=== PATIENT | female | born 2000 | race Caucasian/White ===

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

== ENCOUNTER 2023-11-18 04:07 | Emergency (ER) | payer BC, SELFPAY ==
--- NOTE | ~2023-11-18 | CT_ITS ---
CT of the Abdomen and Pelvis: Indication: Abdominal pain Technique: 2.5 mm axial scans were obtained through the abdomen and pelvis following intravenous adm inistration of 100 cc of Omnipaque 350. Dose reduction technique was used on this scan by utilizing a utomated exposure control and iterative reconstruction technique. The dose-length product (DLP) was 3 68.71 mGy-cm. Findings: Scans through the lung bases are unremarkable. The liver, spleen, pancreas, gallbladder, adrenals and kidneys are within normal limits. No evidence of aortic aneurysm. No lymphadenopathy. No bowel obstruction or bowel wall thickening. There is no evidence to suggest acute appendicitis. Images through the pelvis were performed. Urinary bladder unremarkable. No pelvic mass seen. No ascit es. Impression: No significant abnormalities seen. Reviewed, dictated and finalized at location . Impression: No significant abnormalities seen.
[2023-11-18 04:14] VITALS: BP 114/70; PULSE 96; RESP 14; TEMP 37.1; O2SAT 99
[2023-11-18] MEDS: SODIUM CHLORIDE 0.9% IV 1,000 ML 999 ML IV CONT ×2 (04:21→05:42)
[2023-11-18] MEDS: ONDANSETRON INJ 4 MG/2 ML VIAL IV PUSH (04:22)
[2023-11-18 04:25] LABS: Basophils Percent Auto 0.3 % (0.2-1.2); Eosinophils Absolute Auto 0.2 K/mm3 (0-0.3); Eosinophils Percent Auto 1.7 % (0-4.4); Hematocrit 35.8 % (37.0-47.0); Hemoglobin 11.5 g/dL (12.0-15.0); Immature Granulocyte Absolute 0.05 K/mm3 (0.00-0.031); Immature Granulocyte Percent A 0.5 % (0-0.5); Lymphocytes Absolute Auto 1.63 K/mm3 (0.9-3.2); Lymphocytes Percent Auto 14.8 % (18.3-44.2); Mean Corpuscular HGB Conc 32.1 g/dl (32-36); Mean Corpuscular Hemoglobin 28.3 pg (26-34); Mean Corpuscular Volume 88.2 fl (80-100); Mean Platelet Volume 9.1 fl (7.4-10.4); Monocytes Absolute Auto 0.7 K/mm3 (0.1-0.6); Monocytes Percent Auto 6.4 % (2.6-8.5); Neutrophils Absolute Auto 8.4 K/mm3 (1.3-6.7); Neutrophils Percent Auto 76.3 % (45.5-73.1); Platelet Count Result 346 k/mm3 (150-375); Red Blood Count 4.06 M/mm3 (4.2-5.4); Red Cell Distribution Width 15.9 % (11.5-14.5)
[2023-11-18 04:30] VITALS: PULSE 87; RESP 15; O2SAT 100
[2023-11-18 04:35] LABS: Alanine Aminotransferase 14 U/L (6-35); Albumin Level 4.4 g/dL (3.5-5.1); Alkaline Phosphatase 68 U/L (38-126); Anion Gap 9 mmol/L (4-12); Aspartate Amino Transferase 19 U/L (14-36); Bilirubin,Total 0.4 mg/dL (0.2-1.3); Blood Urea Nitrogen 16 mg/dL (7-17); Calcium 8.9 mg/dL (8.4-10.2); Carbon Dioxide 24 mmol/L (22-30); Chloride 103 mmol/L (98-107); Estimated CRCL calculation 87 ml/min; Estimated Glomerular Filt Rate > 60; Glucose 94 mg/dL (65-110); Lipase 61 U/L (23-300); Magnesium 1.7 mg/dL (1.6-2.3); Potassium 3.5 mmol/L (3.4-5.0); Sodium 136 mmol/L (137-145)
[2023-11-18 04:53] LABS: SPREG INTERNAL CONTROL Positive; Serum Qual hCG Negative
[2023-11-18 05:00] VITALS: PULSE 85; RESP 17; O2SAT 100
[2023-11-18 05:07] LABS: Appearance Urine Clear (Clear); Bacteria Urine Rare /hpf; Bilirubin Urine Negative (Negative); Blood Urine Negative (Negative); Color Urine Dark Yellow (Yellow); Glucose Urine UA Negative (Negative); Ketones Urine Trace mg/dL (Negative); Leukocyte Esterase Ur Trace LEU/UL (Negative); Nitrate Urine Negative (Negative); Non Pathogenic Casts 0-2; Protein Urine Negative (Negative); Specific Grav Ur 1.029 (1.001-1.035); Squamous Epithelial Cell Urine Occasional /hpf (Few); WBC Urine 0-5 /hpf (0-3); pH Urine 6.5 (5.0-9.0)
--- NOTE | 2023-11-18 05:09 | ED.GENADULT ---
HPI - General Adult General Chief complaint: Nausea/Vomiting/Diarrhea Stated complaint: N/V; three days Time Seen by Provider: 11/18/23 04:11 History of Present Illness HPI narrative: Patient is a 23-year-old female who presents to the emergency department this morning complaining of nausea and vomiting for the past few days. Patient admits that she does have sent in from time to time will have these episodes of nausea and vomiting. She currently denies any diarrhea, in fact patient is complaining of constipation. She states that she does have a history of chronic constipation secondary to a thyroid disorder. Patient was prescribed MiraLax once but she states that it made her vomit and since then she has not used it again. She normally has bowel movements every other day but states that she not had a bowel movement in the last 3-4 days. Patient was once prescribed a stimulant for a short course but is currently not on any constipation. She admits to mild abdominal cramping but states that from time to time that she does have these sharp pains. She denies any urinary symptoms. Denies any fevers or chills. No additional symptoms or concerns at this time. Related Data Home Medications Medication Instructions Recorded Confirmed cholecalciferol (vitamin D3) 50 50 mcg PO DAILY 10/21/22 11/06/23 mcg (2,000 unit) capsule folic acid 1 mg tablet 1 mg PO DAILY 10/21/22 11/06/23 mecobalamin (vitamin B12) 1,000 1,000 mcg PO DAILY 10/21/22 11/06/23 mcg chewable tablet norgestimate 0.25 mg-ethinyl 1 tablet PO DAILY 10/21/22 11/06/23 estradiol 35 mcg tablet (Estarylla) phentermine 37.5 mg capsule 37.5 mg PO DAILY 10/21/22 11/06/23 polyethylene glycol 3350 17 17 g PO DAILY 10/21/22 11/06/23 gram/dose oral powder (Miralax) sennosides 8.6 mg-docusate sodium 1 tab-cap PO QHS 10/21/22 11/06/23 50 mg tablet (Stimulant Laxative Plus) Allergies Allergy/AdvReac Type Severity Reaction Status Date / Time tetracycline Allergy Unknown Unknown Verified 11/06/23 13:59 amoxicillin AdvReac Unknown nausea Verified 11/06/23 13:59 clavulanic acid AdvReac Unknown nausea Verified 11/06/23 13:59 Review of Systems Review of Systems: All systems are reviewed and are negative unless stated otherwise in the HPI. 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 Surgical History Surgical History S/P thyroid biopsy Family History Family History Grandparent Malignant neoplasm of prostate Grandparent Family history of alcoholism Father Depression Hypertension Mother Depression Anxiety Multiple sclerosis Osteoporosis H/O Reji thyroiditis Sibling Depression Anxiety ADHD Other Family history of arthritis Family history of malignant neoplasm Family history of mental disorder Social History Social History Smoking status: Never smoker Alcohol intake: never Alcohol use details: socially, 1-3/month Substance use: current Substance use type: marijuana Other substance usage details: seldom; smokes marijuana once q3m Lack of Transportation: No Lack of Food: Never True Current Housing: I Have Housing Concerned About Future Housing: No Difficulty Paying Gas/Electric Bills: No Difficulty Paying for Meds: No Currently Unemployed: No Education: Associate Degree Difficulty w/ Childcare or Family Care: No Occupation/Education: student 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 HEENT: PERRL, no rhinorrhea, no post nasal drip, oropharynx c
[2023-11-18 05:12] LABS: Add Urine Microscopic? YES
[2023-11-18] MEDS: diphenhydrAMINE HCl INJ 50 MG/ML VIAL IV PUSH (05:42)
[2023-11-18] MEDS: METOCLOPRAMIDE HCL INJ 10 MG/2 ML VIAL IV PUSH (05:42)
[2023-11-18 05:45] VITALS: BP 114/90; PULSE 96; RESP 16; O2SAT 100
[2023-11-18 06:30] VITALS: BP 96/53; PULSE 86; RESP 18; O2SAT 100
== END 2023-11-18 07:09 | disposition home or self-care (01) ==
PROVIDERS: Emergency Provider Emergency Medicine; PCP Family Medicine
DX: R11.2 Nausea with vomiting, unspecified (principal); K59.00 Constipation, unspecified; F90.9 Attention-deficit hyperactivity disorder, unspecified type; E03.9 Hypothyroidism, unspecified
CPT/HCPCS: 36415; 74177; 80053; 81001; 81025; 82248; 83690; 83735; 84703; 85025; 96361; 96374; 96375; 99284; J1200; J2405; J2765; J7030; Q9967